=== PATIENT | female | born 1950 | race Caucasian/White ===

== ENCOUNTER 2025-03-22 11:20 | Emergency (ER) | payer MEDICARE, SELFPAY ==
[2025-03-22] VITALS (13 sets, daily range): BP systolic 138–181; BP diastolic 63–104; PULSE 77–89; RESP 18–20; TEMP 36.5–36.9; O2SAT 86–97; BMI 42.3
--- NOTE | 2025-03-22 12:03 | EKG_ITS ---
[facility] [address], [place] [address] Test Date: 2025-03-22 Pat Name: Destinee Monge Department: [facility] Room: Gender: Female Holistic Nutritionist: : 1950 Requested By: Order Number: [id number] Reading MD: Jose R Fernandes MD Measurements Intervals [place] Rate: 84 P: -9 [place]: 190 QRS: -28 QRSD: 88 T: -14 QT: 370 QTc: 437 Interpretive Statements Normal sinus rhythm with sinus arrhythmia Anterolateral infarct , age undetermined Electronically Signed On 03-22-2025 17:46:55 PDT by Jose R Fernandes MD
[2025-03-22] MEDS: ONDANSETRON 4 MG/2 ML INJ IV ×2 (12:16→17:48)
--- NOTE | 2025-03-22 12:23 | DI.CT.S_ITS ---
PROCEDURE: CT ABDOMEN PELVIS W CON INDICATIONS: LLQ pain TECHNIQUE: After the administration of intravenous contrast, axial sections acquired from the lung bases to the pubic symphysis. Coronal and sagittal reformats were performed. For radiation dose reduction, the following was used: automated exposure control, adjustment of mA and/or kV according to patient size. COMPARISON: None. FINDINGS: Image quality: Diagnostic. Lower Chest: Small hiatal hernia. ABDOMEN: Liver: No solid mass. Gallbladder: No radiopaque gallstones or wall thickening. Biliary ducts: No biliary dilation. Pancreas: No ductal dilation. Spleen: Size is within normal limits. Adrenal Glands: No adrenal nodules. Kidneys and Ureters: No hydronephrosis. No solid mass. No complex renal cystic lesion which requires follow up. Moderate burden of nonobstructing left-sided nephrolithiasis, largest measuring 7 millimeters in the renal pelvis. Stomach and Bowel: Inflamed diverticulum of the descending colon (series 2, image 98). Peritoneum: No abnormal intraperitoneal fluid. No free air. Ventral Wall: No significant ventral hernia. Abdominal Nodes: No retroperitoneal or mesenteric adenopathy by size criteria. Vessels: Aorta and inferior vena cava are normal in size. PELVIS: Pelvic Organs: Endometrium measures 9 millimeter. Bladder: Decompressed, with perivesicular fat stranding. Pelvic Nodes: No enlarged lymph nodes. Miscellaneous: No inguinal hernias are seen. Bones: No aggressive osseous abnormality. IMPRESSION: Uncomplicated acute diverticulitis of the descending colon. Bladder is decompressed with perivesicular fat stranding. Findings may indicate cystitis. Correlate with urinalysis. Endometrium measures 9 millimeter. If there is a history of postmenopausal bleeding, consider pelvic ultrasound. If there is no history of perimenopausal bleeding, no further follow-up is indicated per consensus guidelines. Dictated by: Antonino De Luna M.D. on 03/22/2025 at 13:25 Approved by: Antonino De Luna M.D. on 03/22/2025 at 13:27
[2025-03-22] MEDS: MORPHINE 4 MG/ML INJ IV (12:41)
[2025-03-22] MEDS: SODIUM CHLORIDE 0.9% 1,000 ML 1000 ML IV (12:41)
[2025-03-22 12:49] LABS: Add Manual Diff / Slide Review NO; Basophils Absolute Auto 0 /uL (0-100); Basophils Percent Auto 0.3 % (0-2); Eosinophils Absolute Auto 100 /uL (0-450); Eosinophils Percent Auto 0.6 % (2-4); Hematocrit 48.2 % (36-46); Hemoglobin 16.2 g/dL (12.0-16.0); Lymphocytes Absolute Auto 1300 /uL (1100-4500); Lymphocytes Percent Auto 10.3 % (25-40); Mean Corpuscular HGB Conc 33.5 % (30-36); Mean Corpuscular Hemoglobin 29.4 PG (26-34); Mean Corpuscular Volume 87.8 fL (80-100); Monocytes Absolute Auto 1100 /uL (0-900); Monocytes Percent Auto 8.5 % (3-14); Neutrophils Absolute Auto 10100 /uL (1500-7000); Neutrophils Percent Auto 80.3 % (50-75); Platelet Count 242 X10^3/uL (150-400); Red Blood Cell Count 5.49 X10^6/uL (4.0-5.2); Red Cell Distribution Width 14.7 % (11.6-14.8); White Blood Cell Count 12.6 X10^3/uL (4.5-11.0)
[2025-03-22 13:26] LABS: Alanine Aminotransferase 47 IU/L (<35); Albumin 4.2 g/dL (3.5-5.0); Albumin Globulin Ratio 1.2 (1.0-2.8); Alkaline Phosphatase 89 U/L (38-126); Aspartate Aminotransferase 61 IU/L (14-36); BUN Creatinine Ratio 23.4 (6-22); Bilirubin Total 1.1 mg/dL (0.2-1.3); Blood Urea Nitrogen 18 mg/dL (7-17); Carbon Dioxide 21 mmol/L (22-32); Chloride 101 mmol/L (98-107); Estimated Glomerular Filt Rate > 60 mL/min (>60); Globulin 3.5 g/dL (1.7-4.1); Glucose 192 mg/dL (70-99); HEMOLYSIS 61 (0-50); Lipase 34 U/L (23-300); Potassium 4.3 mmol/L (3.4-5.1); Sodium 136 mmol/L (137-145); Total Protein 7.7 g/dL (6.3-8.2)
--- NOTE | 2025-03-22 13:58 | ED.ABDPAIN ---
HPI - Abdominal Pain General Chief Complaint: Abdominal Pain Stated Complaint: nausea divericulitis? Time Seen by Provider: 03/22/25 12:23 Source: patient and family Mode of arrival: Wheelchair Limitations: no limitations History of Present Illness HPI narrative: 74-year-old female presents with complaint of left lower quadrant pain that started Saturday. Has been increasing over time. She denies any flank pain. She was describes some subjective fevers on Saturday but none on Saturday or today. Had nausea and vomiting on Saturday, did have little bit today but not on Saturday. She states she has been constipated had a small bowel movement on Saturday. Denies any black or bloody stools. No dysuria urgency or frequency. Denies any rash or skin changes. Denies chest pain or shortness of breath. Patient states she did some research and thinks she might have diverticulitis has been told she was diverticulosis in the past. Patient denies any vaginal bleeding or discharge. Has a reported allergy to iodine but no antibiotic allergies. No tobacco, no regular alcohol, no recreational drugs. Related Data Previous Rx's ?Medication ?Instructions ?Recorded amoxicillin 875 mg-potassium 1 tab PO BID #20 tabs 03/22/25 clavulanate 125 mg tablet hydrocodone 5 mg-acetaminophen 325 1 tab PO Q6H PRN pain #10 tabs 03/22/25 mg tablet ondansetron 4 mg disintegrating 4 mg PO Q6H PRN nausea and 03/22/25 tablet vomiting #10 tabs Allergies Allergy/AdvReac Type Severity Reaction Status Date / Time iodine AdvReac Mild Rash Verified 03/22/25 11:57 Review of Systems Review of Systems ROS Unobtainable: All systems reviewed & are unremarkable except as noted in HPI and below Patient History Social History Smoking Status: Never smoker Smoking Status: Never smoker Exam Narrative Exam Narrative: GENERAL: Alert and oriented x three, obese female in mild distress. HEENT: Head normocephalic, atraumatic, EOMI, pupils reactive, face symmetric, moist mucous membranes NECK: Supple, full range of motion CARDIOVASCULAR: Regular rate and rhythm without murmurs, rubs or gallops. RESPIRATORY: Breath sounds equal bilaterally, no wheezes rales or rhonchi. ABDOMEN: Soft, positive for left lower quadrant tenderness, patient was increased pain in the left lower quadrant with the palpation of her abdomen in her other quadrants. Normoactive bowel sounds all 4 quadrants. No guarding or rebound, rigidity, no mass : No CVA tenderness EXTREMITIES: Normal range of motion, no clubbing or edema. Neurovascularly intact NEUROLOGICAL: Cranial nerves II through XII grossly intact. Moving all extremities SKIN: Warm, dry, no petechiae, no rashes or lesions. Initial Vital Signs Initial Vital Signs: Vital Signs Temperature 97.7 F 03/22/25 11:57 Pulse Rate 85 03/22/25 11:57 Respiratory Rate 18 03/22/25 11:57 Blood Pressure 181/102 H 03/22/25 11:57 Pulse Oximetry 95 03/22/25 11:57 Oxygen Delivery Method Room Air 03/22/25 11:57 Course Orders Ordered: ED Orders 03/22/25 12:03 Complete Blood Count AUTO DIFF Stat Comprehensive Metabolic Panel Stat Lipase Stat EKG-12 Lead Stat 03/22/25 12:23 CT abdomen pelvis w con Stat 03/22/25 14:53 Urine Culture Stat Urine Microscopic Stat Discontinued Medications Amoxicillin/Clavulanate Potassium (Amoxicillin/Clav 875/125 Mg) 1 tab PO NOW ONE Stop: 03/22/25 14:50 Last Admin: 03/22/25 15:13 Dose: 1 tab Documented By: BRANDON Sodium Chloride (Normal Saline 0.9%) 1,000 mls @ 1,000 mls/hr IV BOLUS ONE Stop: 03/22/25 13:35 Last Infusion: 03/22/25 14:48 Dose: Infused Documented By: Admin: 03/22/25 12:41 Dose: 1,000 mls/hr Documented By: TIMI Ketorolac Tromethamine (Ketorolac 30 Mg/Ml Vial) 15 mg IV NOW ONE Stop: 03/22/25 17:31 Last Admin: 03/22/25 17:47 Dose: 15 mg Documented By: GALE Morphine Sulfate (Morphine 4 Mg/Ml Inj) 4 mg IV NOW ONE Stop: 03/22/25 12:24 Last Admin: 03/22/25 12:41 Dose: 4 mg Documented By: TIMI Ondansetron HCl (Ondansetron 4 Mg/2 Ml Inj) 4 mg IV NOW PRN PRN Reason: Nausea And Vomiting Last Admin: 03/22/25 12:16 Dose: 4 mg Documented By: MILAGRO Ondansetron HCl (Ondansetron 4 Mg Odt) 4 mg PO NOW PRN PRN Reason: Nausea And Vomiting Ondansetron HCl (Ondansetron 4 Mg/2 Ml Inj) 4 mg IV NOW ONE Stop: 03/22/25 17:31 Last Admin: 03/22/25 17:48 Dose: 4 mg Documented By: GALE Vital Signs Vital signs: Vital Signs - 8 hr 03/22/25 11:57 03/22/25 12:33 03/22/25 12:34 Temperature 97.7 F Pulse Rate 85 89 82 Respiratory Rate 18 Blood Pressure 181/102 H Pulse Oximetry 95 89 L 92 Oxygen Delivery Method Room Air 03/22/25 12:34 03/22/25 12:47 03/22/25 12:47 Temperature Pulse Rate 84 Respiratory Rate Blood Pressure 177/104 H 164/93 H Pulse Oximetry 88 L Oxygen Delivery Method 03/22/25 13:00 03/22/25 13:01 03/22/25 13:01 Temperature Pulse Rate 81 80 Respiratory Rate Blood Pressure 171/93 H Pulse Oximetry 90 L 86 L Oxygen Delivery Method 03/22/25 13:30 03/22/25 13:30 03/22/25 14:00 Temperature Pulse Rate 87 85 Respiratory Rate Blood Pressure 167/87 H Pulse Oximetry 92 95 Oxygen Delivery Method 03/22/25 14:00 03/22/25 14:30 03/22/25 14:30 Temperature Pulse Rate 83 Respiratory Rate Blood Pressure 164/79 H 148/80 H Pulse Oximetry 97 Oxygen Delivery Method 03/22/25 14:57 03/22/25 14:57 03/22/25 15:00 Temperature Pulse Rate 82 77 Respiratory Rate Blood Pressure 144/63 H Pulse Oximetry 95 95 Oxygen Delivery Method 03/22/25 15:00 03/22/25 17:30 03/22/25 18:27 Temperature 97.8 F 98.4 F Pulse Rate 78 Respiratory Rate 20 Blood Pressure 138/65 144/81 H Pulse Oximetry 94 Oxygen Delivery Method Room Air MDM - Abdominal Pain Lab Data 03/22/25 12:03 03/22/25 12:03 Labs: Lab Results 03/22/25 03/22/25 Range/Units 12:03 14:53 WBC 12.6 H (4.5-11.0) X10^3/uL RBC 5.49 H (4.0-5.2) X10^6/uL Hgb 16.2 H (12.0-16.0) g/dL Hct 48.2 H (36-46) % MCV 87.8 (80-100) fL MCH 29.4 (26-34) PG MCHC 33.5 (30-36) % RDW 14.7 (11.6-14.8) % Plt Count 242 (150-400) X10^3/uL Neut % (Auto) 80.3 H (50-75) % Lymph % (Auto) 10.3 L (25-40) % [place] % (Auto) 8.5 (3-14) % Eos % (Auto) 0.6 L (2-4) % Baso % (Auto) 0.3 (0-2) % Neut # (Auto) 16550 H (3316-0734) /uL Lymph # (Auto) 1300 (0161-4537) /uL [place] # (Auto) 1100 H (0-900) /uL Eos # (Auto) 100 (0-450) /uL Baso # (Auto) 0 (0-100) /uL Sodium 136 L (137-145) mmol/L Potassium 4.3 (3.4-5.1) mmol/L Chloride 101 (98-107) mmol/L Carbon Dioxide 21 L (22-32) mmol/L BUN 18 H (7-17) mg/dL Creatinine 0.77 (0.52-1.04) mg/dL Estimated GFR > 60 (>60) mL/min BUN/Creatinine Ratio 23.4 H (6-22) Glucose 192 H (70-99) mg/dL Calcium 10.0 (8.4-10.2) mg/dL Total Bilirubin 1.1 (0.2-1.3) mg/dL AST 61 H (14-36) IU/L ALT 47 H (<35) IU/L Alkaline Phosphatase 89 (38-126) U/L Total Protein 7.7 (6.3-8.2) g/dL Albumin 4.2 (3.5-5.0) g/dL Globulin 3.5 (1.7-4.1) g/dL Albumin/Globulin Ratio 1.2 (1.0-2.8) Lipase 34 (23-300) U/L Urine RBC 0-1/hpf (0-5/HPF) Urine WBC 1-5/hpf (0-5/HPF) Ur Squamous Epith Cells 1-5 /hpf (0-5/HPF) Calcium Oxalate Crystal Few H Urine Bacteria Few (2-10) H (None) Ur Culture Indicated? Specimen cultured Vol Urine Centrifuged 10ml (spun) Point of care testing: Urine Dip Bedside Urine Glucose Negative Bedside Urine Bilirubin - Negative Bedside Urine Ketone + 15 Urine Specific [place] 1.010 Bedside Urine Occult Blood - Negative Bedside Urine pH 6.0 Bedside Urine Protein - Negative Bedside Urine Urobilinogen - Negative Bedside Urine Nitrite - Negative Bedside Urine Leukocytes ++ 125 Esterase ECG Data Attestation: I personally reviewed and interpreted this ECG as follows: Interpretation: Sinus rhythm with sinus arrhythmia rate 84 [place] 190 QRS 88 QTC of 437, no acute ST elevation or depression. MDM Narrative Medical decision making narrative: EKG shows sinus rhythm with sinus arrhythmia White count of 12.6 hemoglobin of 16.2 platelets are 242. Electrolytes show a CO2 of 21 sodium 136 BUN 18 creatinine 0.77 potassium and chloride are appropriate glucose is 192 AST ALT your mildly elevated at 61 and 47 with a bilirubin of 1.1 and a lipase of 34. CT abdomen and pelvis shows small hiatal hernia, moderate burden of nonobstructing left side and nephrolithiasis largest measuring 7 mm in the renal pelvis. Inflamed diverticulum of the descending colon. Endometrium measures 9 mm if there is history of postmenopausal bleeding consider pelvic ultrasound if no history of perimenopausal bleeding no further follow up as indicated per consistent guidelines.. Bladder is decompressed with perivesicular fat stranding findings may indicate cystitis correlate with urinalysis. Patient received fluids, Zofran and pain medication. 74-year-old female presents with left-sided abdominal pain with concern for diverticulitis has had prior in the past but states this is intense. Patient had some hypoxia after morphine, was weaned off O2 with no persistent dips in O2. Did have recurrence of pain and nausea so was given Zofran and Toradol has been about 6 hours since last dose. Was given oral antibiotics which she has been tolerating. She was feeling much better after additional medications and would like to return home. We will send with a prescription of oral pain medication, antinausea medication and oral antibiotics. Patient and family feel comfortable with this plan. Discussed return precautions. Discharge Plan Departure Patient Disposition: Home Clinical Impression: Diverticulitis Instructions: DI for Diverticulitis Activity Restrictions/Additional Instructions: Your imaging does show changes consistent with diverticulitis, your endometrium measures 9 mm if you have had any postmenopausal bleeding it is recommended you have pelvic ultrasound but if you have not you do not need to pursue further workup. Take oral antibiotics until completed. You can take ondansetron 1 tablet every 6 hours as needed for nausea. You can take acetaminophen up to a 1000 mg and/or ibuprofen up to 600 mg every 6 hours as needed for pain. If inadequate you can take [place] every 6 hours as needed instead of acetaminophen. This medication can make you sleepy do not drive, perform hazardous activities or make any major decisions while taking it. This medication will make you constipated please take a stool softener once to twice daily until stools are soft and regular. Take a stool softener such as Colace or Dulcolax 1-2 times daily. You can also take MiraLax with this. Make sure you are drinking plenty of fluids to help this medication work. You have also been given a bottle of magnesium citrate, drink 1/2 of the bottle wait 4-5 hours if no changes you can drink the other 1/2 of the bottle. Prescription sent to [facility] in [place]. Please return for fevers, rapidly worsening abdominal back or flank pain, persistent vomiting, new black or bloody stools, lightheadedness or passing out or other new or concerning changes Prescriptions: New amoxicillin-pot clavulanate 875-125 mg tablet 1 tab PO BID Qty: 20 0RF hydrocodone-acetaminophen 5-325 mg tablet 1 tab PO Q6H PRN (Reason: pain) Qty: 10 0RF ondansetron 4 mg tablet,disintegrating 4 mg PO Q6H PRN (Reason: nausea and vomiting) Qty: 10 0RF Stand Alone Forms: Patient Portal/API
--- NOTE | 2025-03-22 14:52 | PC.NURSE ---
This RN is not primary nurse but notes that patients oxygen saturation went down to 84% when the patient got up to use the bedside commode, placed the patient on 2L NC and saturations are now 97%
[2025-03-22] MEDS: AMOXICILLIN/CLAV 875/125 MG 1 TAB PO (15:13)
--- NOTE | 2025-03-22 15:14 | PC.NURSE ---
Patient oxygen at 86% on RA. Sat patient upright. Patient oxygen slowly climbs within 1 minute to 93% on RA.
[2025-03-22 16:12] LABS: Bacteria Urine Few (2-10); Calcium Oxalate Crystals Urine Few; Culture Indicated Urine Specimen Cultured; RBC Urine 0-1/HPF (0-5/HPF); Squamous Epithelial Cell Urine 1-5 /HPF (0-5/HPF); Urine Volume 10mL (spun); WBC Urine 1-5/HPF (0-5/HPF)
[2025-03-22] MEDS: KETOROLAC 30 MG/ML VIAL 15 MG IV (17:47)
== END 2025-03-22 18:28 | disposition home or self-care (01) ==
PROVIDERS: Emergency Provider Emergency Medicine
DX: K57.32 Diverticulitis of large intestine without perforation or abscess without bleeding (principal); I49.9 Cardiac arrhythmia, unspecified
CPT/HCPCS: 36415; 74177; 80053; 81003; 81015; 83690; 85025; 87077; 87086; 93005; 93010; 96361; 96374; 96375; 96376; 99284; J1885; J2270; J2405; Q9967